=== PATIENT | male | born 1990 | race Caucasian/White ===

== ENCOUNTER 2022-04-25 22:28 | Emergency (ER) | payer OTHER ==
[~2022-04-25 22:28] MED LIST: ASPIRIN CHEWABL81 MG PO
[2022-04-25] MEDS ORDERED: BACITRACIN28.4 GM TP (23:58)
== END 2022-04-26 00:30 | disposition home or self-care (01) ==
LOC: ER1 22:28
DX: T24.301A Burn of third degree of unspecified site of right lower limb, except ankle and foot, initial encounter (principal); T22.30XA Burn of third degree of shoulder and upper limb, except wrist and hand, unspecified site, initial encounter; T31.0 Burns involving less than 10% of body surface; Z88.0 Allergy status to penicillin; X08.8XXA Exposure to other specified smoke, fire and flames, initial encounter
CPT/HCPCS: 16020; 99283